=== PATIENT | female | born 1990 | race Two or more races ===

== ENCOUNTER → 2018-04-21 | Outpatient (CLI) | payer SELFPAY ==
--- NOTE | 2018-04-21 16:22 | RADIOLOGY REPORT (SQ) ---
EXAM DESCRIPTION: U/S OB 14+ TRNABD 1GES W/O DOP COMPLETED DATE/TIME: 04/21/2018 4:10 pm REASON FOR STUDY: Z34.02 ENCNTR FOR SUPRVSN OF NORMAL FIRST PREG, SECOND TRIMESTER Z34.02 ENCNTR FO R SUPRVSN OF NORMAL FIRST PREG, SECOND TRIME COMPARISON: None. TECHNIQUE: Static and Dynamic grayscale imaging performed of gravid uterus using transabdominal appr oac. Additional selected color Doppler and spectral images recorded. All stored on PACS. LIMITATIONS: None. FINDINGS: FETUSES SEEN:1 EGA: 27 week 0 day. Calculated using BPD,FL,HC,AC documented on images. No discrepancy with clinical dates. ISABELA: 07/21/2018. EFW: 1,041 grams PERCENTILE: 45%. JANES: 13.5 cm. PLACENTA: Anterior. GRADE: I PRESENTATION: Cephalic. ANATOMY: HEART RATE: 152 beats per minute. FOUR CHAMBER HEART: Visualized. THREE VESSEL CORD: Yes. CORD INSERTION: Visualized. KIDNEYS AND BLADDER: Visualized. Appear normal. STOMACH: Visualized. Appears normal. SPINE: Poorly visualized due to positioning. BRAIN AND LATERAL VENTRICLES: Visualized. Appear normal. OTHER: No other significant finding. MATERNAL ADNEXA: Maternal ovaries not visualized. CERVICAL LENGTH: 4.0 cm. Closed. OTHER: No other significant finding. IMPRESSION: LIVING INTRAUTERINE . ESTIMATED GESTATIONAL AGE 27 WEEK 0 DAY. NO VISUALIZED ANOMALIES. Trimester of : Second trimester - 13 weeks 1 day to 27 weeks 6 days. TECHNICAL DOCUMENTATION: JOB ID: [id number] [employer]- All Rights Reserved Reading location - IP/workstation name: [email or web address]
== END ==
LOC: EDSTATUS 11:12 → RAD 15:18
PROVIDERS: ATTEND Midwife
DX: Z34.02 Encounter for supervision of normal first pregnancy, second trimester (principal)
CPT/HCPCS: 76805

== ENCOUNTER 2018-07-14 01:41 | Inpatient (IN) | payer MEDICAID ==
[2018-07-14 02:16] LABS: APPEARANCE,URINE SLIGHTLY-CLOUDY; BILIRUBIN,URINE NEGATIVE (NEGATIVE); COLOR,URINE YELLOW; GLUCOSE, URINE NEGATIVE (NEGATIVE); KETONES,URINE 20 mg/dL (NEGATIVE); LEUKOCYTE ESTERASE,URINE MODERATE (NEGATIVE); NITRITE,URINE NEGATIVE (NEGATIVE); PROTEIN,URINE NEGATIVE (NEGATIVE); URINE SPECIFIC GRAVITY 1.015; UROBILINOGEN,URINE NEGATIVE mg/dL (<2.0)
[2018-07-14] MEDS ORDERED: RINGERS SOLUTION,LACTATED 1,000 ML IV ONE (02:30)
[2018-07-14 02:36] LABS: URINE AMPHETAMINES SCREEN NEGATIVE; URINE BARBITURATES SCREEN NEGATIVE; URINE BENZODIAZEPINES SCREEN NEGATIVE; URINE COCAINE SCREEN NEGATIVE; URINE MARIJUANA (THC) SCREEN NEGATIVE; URINE METHADONE SCREEN NEGATIVE; URINE PHENCYCLIDINE SCREEN NEGATIVE
[2018-07-14 02:45] LABS: ABSOLUTE EOSINOPHILS # (AUTO) 0.1 10^3/uL (0.0-0.6); ABSOLUTE LYMPHOCYTES (AUTO) 2.3 10^3/uL (0.5-4.7); ABSOLUTE MONOCYTES (AUTO) 0.8 10^3/uL (0.1-1.4); ABSOLUTE NEUT (AUTO) 8.1 10^3/uL (1.7-8.2); BASOPHILS % (AUTO) 0.3 % (0-2); EOSINOPHILS % (AUTO) 1.1 % (0-6); HEMATOCRIT 36.7 % (36.0-47.0); HEMOGLOBIN 12.5 g/dL (12.0-15.5); LYMPHOCYTES % (AUTO) 20.4 % (13-45); MEAN CORPUSCULAR HEMOGLOBIN 29.1 pg (27.0-33.4); MEAN CORPUSCULAR HGB CONC 34.1 g/dL (32.0-36.0); MEAN CORPUSCULAR VOLUME 85 fl (80-97); MONOCYTES % (AUTO) 6.7 % (3-13); PLATELET COUNT 292 10^3/uL (150-450); RED CELL DISTRIBUTION WIDTH 13.5 % (11.5-14.0); SEGMENTED NEUTROPHILS % (AUTO) 71.5 % (42-78); TOTAL CELLS COUNTED % (AUTO) 100 %; WHITE BLOOD COUNT 11.3 10^3/uL (4.0-10.5)
[2018-07-14] MEDS: RINGERS SOLUTION,LACTATED 1,000 ML IV PRN ×2 (03:43→11:06)
--- NOTE | 2018-07-14 07:18 | Admission Physical ---
Datetime Report Generated by CPN: 07/14/2018 07:17 CURRENT ADMISSION Chief Complaint: Uterine Contractions Indication for Induction: Not Applicable Admit Impression : Term, Intrauterine ; Ruptured Membranes Admit Plan: Admit to Unit; Initiate Labor Augmentation Protocol ALLERGIES Medication Allergies: No Medication Allergies: No Known Allergies (07/14/2018) Latex: No Latex Allergies OBSTETRICAL HISTORY EDC: 07/25/2018 00:00 : 1 Para: 0 Term: 0 : 0 SAB: 0 IAB: 0 Ectopic: 0 Livin Cesareans: 0 VBACs: 0 Multiple Births: 0 Gestational Diabetes: No Rh Sensitization: No Incompetent Cervix: No EUN: No Infertility: No ART Treatment: No Uterine Anomaly: No IUGR: No Hx Previous C/S: No Macrosomia: No Hx Loss/Stillborn: No PIH: No Hx : No Placenta Previa/Abruption: No Depression/PP Depression: No PTL/PROM: No Post Hemorrhage: No Current Procedures: Ultrasound Obstetrical History Comments: G1- Current SEE RECORDS Alcohol: No Marijuana : No Cocaine: No Other Illicit Drugs: No Cigarettes: Never Smoker. [id number] MEDICAL HISTORY Diabetes: No Blood Transfusion: No Pulmonary Disease (Asthma, TB): No Breast Disease: No Hypertension: No Radiology Transcriptionist Surgery: No Heart Disease: No Hosp/Surgery: No Autoimmune Disorder: No Anesthetic Complications: No Kidney Disease: No Abnormal Pap Smear: No Neuro/Epilepsy: No Psychiatric Disorders: No Other Medical Diseases: No Hepatitis/Liver Disease: No Significant Family History: No Varicosities/Phlebitis: No Trauma/Violence : No Thyroid Dysfunction: No INFECTIOUS HISTORY Gonorrhea: No Genital Herpes: No Chlamydia: No Tuberculosis: No Syphilis: No Hepatitis: No HIV/AIDS Exposure: No Rash or Viral Illness: No HPV: No PHYSICAL EXAM General: Normal HEENT: Normal Neurologic: Normal Thyroid: Normal Heart: Normal Lungs: Normal Breast: Normal Back: Normal Abdomen: Normal Genitourinary Exam: Normal Extremities: Normal DTRs: Normal Pelvic Type: Adequate Vital Signs: Reviewed; Within Normal Limits VAGINAL EXAM Dilatation: ft Effacement: 80 Station: -1 Contraction Comments: regular MEMBRANES Membranes: Ruptured FETUS A EGA: 38.3 Monitoring: External US FHR- Baseline: 120s Variability: Moderate 6-25bpm Accelerations: 15X15 Decelerations: None FHR Category: Category I Admit Comment: presents to L_D c/o leakage of fluid. GBS Neg. Language barrier. PLANS FOR LABOR AND DELIVERY Labor and Delivery: None Feeding Preference: Both Benefit of Breast Feed Discussed: Yes INFORMED CONSENT Signature: with User ID: [email or web address]
[2018-07-14] MEDS ORDERED: LIDOCAINE 1% INJ-PF (10 MG/ML) 30 ML SDV ONE (07:37)
[2018-07-14] MEDS ORDERED: OXYTOCIN 10 UNIT/ML VIAL ONE (07:37)
[2018-07-14] MEDS ORDERED: OXYTOCIN/NORMAL SALINE 20 UNIT/1,000 ML RTUINJ ONE (07:37)
[2018-07-14] MEDS ORDERED: MISOPROSTOL 0.2 MG TABLET ONE ×2 (07:37→23:27)
[2018-07-14] MEDS ORDERED: OXYTOCIN/NORMAL SALINE 20 UNIT/1,000 ML RTUINJ IV PRN (08:30)
[2018-07-14] MEDS ORDERED: NALBUPHINE HCL INJ 10 MG/1 ML AMPULE ONE (11:14)
[2018-07-14] MEDS ORDERED: PROMETHAZINE HCL INJ 25 MG/1 ML VIAL ONE (11:14)
[2018-07-14] MEDS ORDERED: PROMETHAZINE HCL INJ 25 MG/1 ML VIAL IV ONE (11:20)
[2018-07-14] MEDS ORDERED: EPHEDRINE SULFATE INJ 50 MG/1 ML AMPULE ONE (15:24)
[2018-07-14] MEDS ORDERED: FENTANYL/BUPIVACAINE/NS/PF 300 MCG/150 ML RTUINJ EPI ONE (15:25)
[2018-07-14] MEDS ORDERED: BUPIVACAINE HCL 0.25 % INJ/PF (2.5 MG/1 ML) 30 ML VIAL ONE (15:25)
[2018-07-14] MEDS ORDERED: ACETAMINOPHEN 325 MG TABLET ONE ×2 (16:36→23:56)
[2018-07-14] MEDS ORDERED: AMPICILLIN SOD INJ 2 GM VIAL ONE (17:57)
[2018-07-14] MEDS ORDERED: GENTAMICIN SULFATE INJ 80 MG/2 ML VIAL ONE ×2 (17:57→18:22)
[2018-07-14] MEDS: AMPICILLIN SODIUM 2 GM in NORMAL SALINE 100 ML IV SCH (18:03)
[2018-07-14] MEDS ORDERED: GENTAMICIN SULFATE INJ 80 MG/2 ML VIAL IV SCH (18:30)
[2018-07-15] MEDS ORDERED: DIPHENHYDRAMINE HCL 25 MG CAPSULE PO PRN (00:26)
[2018-07-15] MEDS ORDERED: PROMETHAZINE HCL INJ 25 MG/1 ML VIAL IV PRN (00:26)
[2018-07-15] MEDS ORDERED: MISOPROSTOL 0.2 MG TABLET PR PRN (00:26)
[2018-07-15] MEDS ORDERED: PROMETHAZINE HCL 25 MG SUPP.RECT PR PRN (00:26)
[2018-07-15] MEDS ORDERED: GLYCERIN/WITCH HAZEL LEAF 1 EACH MED..WIPE TP PRN (00:26)
[2018-07-15] MEDS ORDERED: ACETAMINOPHEN 325 MG TABLET PO PRN (00:26)
[2018-07-15] MEDS ORDERED: OXYTOCIN/NORMAL SALINE 20 UNIT/1,000 ML RTUINJ IV PRN (00:26)
[2018-07-15] MEDS ORDERED: ACETAMINOPHEN WITH CODEINE #3 TABLET PO PRN ×2 (00:26)
[2018-07-15] MEDS ORDERED: MEASLES,MUMPS&RUBELLA VACC/PF 0.5 ML VIAL SUBCUT PRN (00:26)
[2018-07-15] MEDS ORDERED: MAGNESIUM HYDROXIDE SUSP 30 ML UDCUP PO PRN (00:26)
[2018-07-15] MEDS ORDERED: DIBUCAINE 1% OINTMENT 56 GM TP PRN (00:26)
[2018-07-15] MEDS ORDERED: BENZOCAINE/MENTHOL AEROSOL SPRAY 56 ML TOP PRN (00:26)
[2018-07-15] MEDS ORDERED: ZOLPIDEM TARTRATE 5 MG TABLET PO PRN (00:26)
[2018-07-15] MEDS ORDERED: PROMETHAZINE HCL 25 MG TABLET PO PRN (00:26)
[2018-07-15] MEDS ORDERED: NA PHOS,M-B/NA PHOS,DI-BA (ADULT) 133 ML ENEMA PR PRN (00:26)
[2018-07-15] MEDS ORDERED: DIPH/PERTUSS(ACELL)/TETANUS VAC/PF 0.5 ML SYR (>=10YO) IM PRN (00:26)
[2018-07-15] MEDS ORDERED: PSEUDOEPHEDRINE HCL 30 MG TABLET PO PRN (00:26)
[2018-07-15] MEDS ORDERED: AMPICILLIN SOD INJ 2 GM VIAL ONE ×2 (01:03→05:44)
[2018-07-15] MEDS ORDERED: GENTAMICIN SULFATE INJ 80 MG/2 ML VIAL IV SCH (02:00)
[2018-07-15] MEDS: AMPICILLIN SODIUM 2 GM in NORMAL SALINE 100 ML IV SCH ×5 (02:10→23:36)
[2018-07-15] MEDS: IBUPROFEN 800 MG TABLET PO SCH ×3 (05:58→21:33)
[2018-07-15] MEDS: FAMOTIDINE 20 MG TABLET PO SCH ×2 (09:51→21:33)
[2018-07-15] MEDS: PRENATAL VITAMIN W DHA CAPSULE PO SCH (09:51)
[2018-07-15] MEDS: DOCUSATE SODIUM 100 MG CAPSULE PO SCH ×2 (09:51→18:28)
[2018-07-15] MEDS: SENNOSIDES/DOCUSATE 8.6-50 MG 1 EACH TABLET PO SCH (09:52)
[2018-07-15] MEDS: FERROUS SULFATE 325 MG TABLET PO SCH ×2 (09:52→18:28)
[2018-07-15] MEDS: GENTAMICIN SULFATE 150 MG in DEXTROSE 5%-WATER 100 ML IV SCH ×2 (11:48→21:30)
--- NOTE | 2018-07-15 11:49 | PDOC PROGRESS REPORT ---
Subjective-OB Progress Note for:: 07/15/18 Subjective: reports pain controlled with current meds, bleeding slowing. denies needs. Physical Exam (OB) Vital Signs: Temp Pulse Resp BP Pulse Ox 97.9 F 85 20 101/61 97 07/15/18 07:59 07/15/18 07:59 07/15/18 07:59 07/15/18 07:59 07/15/18 07:59 Intake & Output 07/14/18 07/15/18 07/16/18 06:59 06:59 06:59 Intake Total 1023 300 Balance 1023 300 Weight 98 kg - Abdomen Description: Soft Hernia Present: No Fundal Description: Firm, Midline Fundal Height: u/u - u/2 - Abdominal Distension: No distension Tenderness: Nontender - Extremities Lower extremities: Lucas's sign - neg Calf: Normal, Nontender Objective-Diagnostic Laboratory: 07/14/18 02:33 Assessment and Plan(PN) - Assessment and Plan (1) Vaginal delivery Is this a current diagnosis for this admission?: Yes - Time Spent with Patient Time with patient: Less than 15 minutes Medications reviewed and adjusted accordingly: Yes - Disposition Anticipated Discharge: Home Within: within 24 hours
[2018-07-16] MEDS: GENTAMICIN SULFATE 150 MG in DEXTROSE 5%-WATER 100 ML IV SCH ×2 (02:28→14:25)
[2018-07-16] MEDS: IBUPROFEN 800 MG TABLET PO SCH ×2 (05:29→14:29)
[2018-07-16] MEDS: AMPICILLIN SODIUM 2 GM in NORMAL SALINE 100 ML IV SCH ×2 (06:10→14:26)
[2018-07-16 06:53] LABS: HEMATOCRIT 30.7 % (36.0-47.0); HEMOGLOBIN 10.6 g/dL (12.0-15.5); MEAN CORPUSCULAR HEMOGLOBIN 29.8 pg (27.0-33.4); MEAN CORPUSCULAR HGB CONC 34.4 g/dL (32.0-36.0); MEAN CORPUSCULAR VOLUME 87 fl (80-97); PLATELET COUNT 255 10^3/uL (150-450); RED BLOOD COUNT 3.54 10^6/uL (3.72-5.28); RED CELL DISTRIBUTION WIDTH 13.7 % (11.5-14.0); WHITE BLOOD COUNT 10.9 10^3/uL (4.0-10.5)
--- NOTE | 2018-07-16 08:15 | Delivery Summary ---
Del Sum A-C Datetime Report Generated by CPN: 07/16/2018 08:14 DELIVERY PERSONNEL DELIVERY PERSONNEL: [id number] Delivery Doctor:: Jessica Welsh MD Anesthesiologist:: Petey Manuel MD Labor and Delivery Nurse:: Delmi Lopez RN Labor and Delivery Nurse:: Ana Gutierrez RN Nursery Nurse:: Cherelle Quintana RN MATERNAL INFORMATION Delivery Anesthesia: Epidural Medications After Delivery: Pitocin Drip 20 Units/1000ml NSS; Cytotec 1000mcg Per Rectum/Vagina Maternal Complications: Premature Rupture of Membranes; Maternal Fever Other Maternal Complications: prolonged rupture of membranes Provider Comments: VMI delivered in ARANZA presentation with compound right hand. Shoulders and body delivered without difficulty. Cord doubly clamped and cut and to maternal abd. Placneta delivered intact spontaneously. FF at U after cytotec for uterine atony. Perineal 2nd degree laceration repaired in usual fashion with good hemostasis. Mother and baby stable upon provider leaving the room. LABOR SUMMARY EDC: 07/25/2018 00:00 No. Babies in Womb: 1 Labor Anesthesia: Epidural LABOR INFORMATION Reason for Induction: Premature Rupture of Membranes Onset of Labor: 07/15/2018 17:43 Complete Dilatation: 07/14/2018 01:00 Oxytocin: Induction Group B Beta Strep: Negative Steroids Given: None Reason Steroids Not Administered: Not Applicable MEMBRANES Membranes Rupture Method: Spontaneous Rupture of Membranes: 07/14/2018 01:00 Length of Rupture (hr): 22.35 Amniotic Fluid Color: Clear Amniotic Fluid Amount: Moderate Amniotic Fluid Odor: Normal STAGES OF LABOR Stage 1 hr: -40 Stage 1 min: -43 Stage 2 hr: 22 Stage 2 min: 21 Stage 3 hr: 24 Stage 3 min: 32 Total Time in Labor hr: 6 Total Time in Labor min: 10 VAGINAL DELIVERY Episiotomy: None Laceration #1: Perineal Laceration Extension #1: Second Degree Laceration Repair: Yes Sponge Count Correct: Yes Sharps Count Correct: Yes CSECTION DELIVERY Primary Indication: N/A CSection Incision: N/A BABY A INFORMATION Infant Delivery Date/Time: 07/14/2018 23:21 Method of Delivery: Vaginal Born in Route : No : N/A Forceps: N/A Vacuum Extraction: N/A Shoulder Dystocia : No PRESENTATION/POSITION BABY A Presentation: Cephalic Cephalic Presentation: Vertex Vertex Position: Right Occipital Anterior Breech Presentation: N/A PLACENTA INFORMATION BABY A Placenta Delivery Time : 07/15/2018 23:53 Placenta Method of Delivery: Spontaneous Placenta Status: Delivered SCORES BABY A Heart Rate 1 min: >100 bpm Resp Effort 1 min: Good Cry Reflex Irritability 1 min: Cough or Sneeze or Pulls Away Muscle Tone 1 min: Active Motion Color 1 min: Blue/Pale SCORE 1 MIN: 8 Heart Rate 5 min: >100 bpm Resp Effort 5 min: Good Cry Reflex Irritability 5 min: Cough or Sneeze or Pulls Away Muscle Tone 5 min: Active Motion Color 5 min: Body [place], Extremities Blue SCORE 5 MIN: 9 INFORMATION BABY A Gestational Age at Delivery: 38.3 Gestational Status: Early Term- 37- 38.6 Weeks Outcome : Liveborn Condition : Stable Sex: Male Infant Sex: Male IDENTIFICATION BABY A Verification Date/Time: 07/14/2018 23:40 ID Band Number: [id number] Mother's Name Verified: Yes Infant RN Verifying : C. Mpilin,RN E. Jilek, RN WEIGHT/LENGTH BABY A Infant Birthweight (gm): 3336 Infant Weight (lb): 7 Infant Weight (oz): 6 Length (in): 19.75 Length (cm): 50.17 CORD INFORMATION BABY A No. Cord Vessels: 3 Nuchal Cord : N/A Nuchal Cord- Other: compound right hand Cord Blood Taken: Yes-For Eval (Mom's Blood Type - or O+) Suction: None ASSESSMENT BABY A Skin to Skin: Yes Skin to Skin: Yes SIGNATURES Signature: with User ID: [email or web address] : I was personally available for consultation and serving as supervising physician for the P.
[2018-07-16 08:55] VITALS: BP 101/65
[2018-07-16] MEDS: PRENATAL VITAMIN W DHA CAPSULE PO SCH (09:43)
[2018-07-16] MEDS: FERROUS SULFATE 325 MG TABLET PO SCH (09:43)
[2018-07-16] MEDS: SENNOSIDES/DOCUSATE 8.6-50 MG 1 EACH TABLET PO SCH (09:43)
[2018-07-16] MEDS: DOCUSATE SODIUM 100 MG CAPSULE PO SCH (09:43)
[2018-07-16] MEDS: FAMOTIDINE 20 MG TABLET PO SCH (09:43)
--- NOTE | 2018-07-16 11:02 | PDOC DISCHARGE SUMMARY ---
Final Diagnosis Discharge Date: 07/16/18 - Final Diagnosis (1) Acute blood loss anemia Is this a current diagnosis for this admission?: Yes (2) PROM (premature rupture of membranes) Is this a current diagnosis for this admission?: Yes (3) Perineal laceration during delivery, delivered Is this a current diagnosis for this admission?: Yes (4) Prolonged rupture of membranes Is this a current diagnosis for this admission?: Yes (5) Vaginal delivery Is this a current diagnosis for this admission?: Yes Discharge Data - Discharge Medication Prescriptions: Ibuprofen [Motrin 800 mg Tablet] 800 mg PO Q8HP PRN #20 tablet PRN Reason: Abdominal Cramping Docusate Sodium [Colace 100 mg Capsule] 100 mg PO BID #60 capsule Ferrous Sulfate [Feosol 325 mg Tablet] 325 mg PO BID #60 tablet Home Medications: Vits96/Iron Fum/Folic [ Tablet] 1 each PO DAILY 07/14/18 Docusate Sodium [Colace 100 mg Capsule] 100 mg PO BID #60 capsule 07/16/18 Ferrous Sulfate [Feosol 325 mg Tablet] 325 mg PO BID #60 tablet 07/16/18 Ibuprofen [Motrin 800 mg Tablet] 800 mg PO Q8HP PRN #20 tablet 07/16/18 Reason(s) for Admission: PROM Procedures: Ultrasound Intrapartum Procedure(s): Spontaneous Vaginal Delivery Complication(s): Laceration-Perineal Laceration-Degree: 2nd - Diagnosis Test Laboratory: Temp Pulse Resp BP Pulse Ox 97.6 F 67 14 101/65 99 07/16/18 07:50 07/16/18 07:50 07/16/18 07:50 07/16/18 07:50 07/16/18 07:50 07/14/18 07/14/18 07/16/18 01:50 02:33 06:24 RBC 4.30 3.54 L Hgb 12.5 10.6 L Hct 36.7 30.7 L Urine Opiates Screen NEGATIVE - Discharge information/Instructions Discharge Activity: Activity As Tolerated, Balance Activity w/Rest, No Lifting Over 10 Pounds, Pelvic Rest, No tub bath, Walk Frequently Discharge Diet: As Tolerated, Regular Disposition: HOME, SELF-CARE Follow up with: [facility] in: 5, Weeks
== END 2018-07-16 17:19 | disposition home or self-care (01) | DRG 806 ==
LOC: LC 01:41 → LR 02:22 → 2S 07-15 02:08
PROVIDERS: ADMIT Obstetrics & Gynecology; ATTEND Obstetrics & Gynecology
PROC: 10E0XZZ Delivery of Products of Conception, External Approach (ICD-10-PCS; principal; 2018-07-14)
PROC: 0KQM0ZZ Repair Perineum Muscle, Open Approach (ICD-10-PCS; 2018-07-14)
PROC: 3E033VJ Introduction of Other Hormone into Peripheral Vein, Percutaneous Approach (ICD-10-PCS; 2018-07-14)
PROC: 4A1HXCZ Monitoring of Products of Conception, Cardiac Rate, External Approach (ICD-10-PCS; 2018-07-14)
DX: O32.6XX0 Maternal care for compound presentation, not applicable or unspecified (principal); D62 Acute posthemorrhagic anemia; Z37.0 Single live birth; O90.81 Anemia of the puerperium; O70.1 Second degree perineal laceration during delivery; Z3A.38 38 weeks gestation of pregnancy
CPT/HCPCS: 36415; 80307; 81005; 84112; 85025; 85027; 86592; 86850; 86900; 86901; 88307; J0290; J1580; J2300; J2550; J2590; J3010; J3490; J7050; J7060

== ENCOUNTER → 2019-06-19 | Outpatient (CLI) | payer SELFPAY ==
--- NOTE | 2019-06-19 14:36 | RADIOLOGY REPORT (SQ) ---
EXAM DESCRIPTION: U/S OB 14+ TRNABD 1GES W/O DOP IMAGES COMPLETED DATE/TIME: 06/19/2019 2:17 pm REASON FOR STUDY: Z34.82 ENCOUNTER FOR SUPRVSN OF NORMAL , SECOND TRIMESTER Z34.82 ENCOUNT ER FOR SUPRVSN OF NORMAL , SECOND TRI COMPARISON: None. TECHNIQUE: Transabdominal static and realtime grayscale images acquired of the pelvis. Additional se lected spectral and color Doppler images recorded. All images stored on PACs. bHCG: Not available. CLINICAL DATES: Unknown. LIMITATIONS: None. FINDINGS: FETUS: Single Living intrauterine . ULTRASOUND EGA: 13 weeks 5 days. ULTRASOUND ISABELA: 12/20/2019 EFW: Not applicable less than 20 weeks. CRL: 7.7 cm. FHR: 157 beats per minute. SURVEY: No visualized anomalies. AMNIOTIC FLUID: Adequate amount. PLACENTA: Not yet developed due to early gestation. SUBCHORIONIC BLEED: No. SIZE OF BLEED: Not applicable. UTERUS: No masses. No anomalies. CERVICAL LENGTH: 4.0 cm. Closed. RIGHT ADNEXA: Normal ovary with normal vascular flow. No adnexal free fluid. No adnexal masses. LEFT ADNEXA: Normal ovary with normal vascular flow. No adnexal free fluid. No adnexal masses. FREE FLUID: None. OTHER: No other significant finding. IMPRESSION: LIVING INTRAUTERINE . EGA 13 WEEKS 5 DAYS. Trimester of : Second trimester - 13 weeks 1 day to 27 weeks 6 days. TECHNICAL DOCUMENTATION: JOB ID: [id number] [employer]- All Rights Reserved rev Reading location - IP/workstation name: [email or web address]
== END ==
LOC: RAD 12:13
PROVIDERS: ATTEND Midwife
DX: Z34.82 Encounter for supervision of other normal pregnancy, second trimester (principal); Z3A.13 13 weeks gestation of pregnancy
CPT/HCPCS: 76805

== ENCOUNTER 2019-11-15 16:02 | Outpatient (CLI) | payer MEDICAID ==
[2019-11-15 16:57] LABS: APPEARANCE,URINE SLIGHTLY-CLOUDY; BILIRUBIN,URINE NEGATIVE (NEGATIVE); COLOR,URINE AMBER; GLUCOSE, URINE NEGATIVE (NEGATIVE); KETONES,URINE NEGATIVE (NEGATIVE); LEUKOCYTE ESTERASE,URINE TRACE (NEGATIVE); NITRITE,URINE NEGATIVE (NEGATIVE); PROTEIN,URINE 30 mg/dL (NEGATIVE); URINE SPECIFIC GRAVITY 1.017
[2019-11-15 17:13] LABS: URINE AMPHETAMINES SCREEN NEGATIVE; URINE BARBITURATES SCREEN NEGATIVE; URINE BENZODIAZEPINES SCREEN NEGATIVE; URINE COCAINE SCREEN NEGATIVE; URINE MARIJUANA (THC) SCREEN NEGATIVE; URINE METHADONE SCREEN NEGATIVE; URINE PHENCYCLIDINE SCREEN NEGATIVE
[2019-11-15] MEDS ORDERED: RINGERS SOLUTION,LACTATED 1,000 ML IV PRN (17:14)
[2019-11-15] MEDS ORDERED: CEFTRIAXONE INJ 1000 MG VIAL ONE (17:18)
[2019-11-15] MEDS ORDERED: CEFTRIAXONE INJ 1000 MG VIAL IV ONE (18:30)
--- NOTE | 2019-11-15 19:03 | Non Stress Test Report ---
Non Stress Test Datetime Report Generated by CPN: 11/15/2019 19:03 DEMOGRAPHIC EGA NST: 35.0 INDICATION Indication for Study (NST) Other: vaginal bleeding MONITORING Monitor Explained: Monitor Explained; Test Explained; Patient Verbalized Understanding Time on Monitor: 11/15/2019 16:24 Time off Monitor: 11/15/2019 18:54 NST Duration: 150 NST INTERVENTIONS NST Interventions: None BABY A: [id number] Movement : Present Contraction Frequency : none FHR Baseline : 135 Accelerations : 15X15 Decelerations : None Variability : Moderate 6-25bpm NST Review: Meets Criteria for Reactive NST NST Review and Verified By : Olvin WORTHINGTONT Results: Reactive NST REPORT Report Trigger: Send Report
[2019-11-16] MEDS ORDERED: NITROFURANTOIN MONOHYD/M-CRYST 100 MG CAPSULE PO SCH (10:00)
== END 2019-11-15 19:12 | disposition home or self-care (01) ==
LOC: RDC 16:02 → LC 19:12
PROVIDERS: ATTEND Obstetrics & Gynecology
DX: O46.93 Antepartum hemorrhage, unspecified, third trimester (principal); Z3A.35 35 weeks gestation of pregnancy
CPT/HCPCS: 59025; 87086; 81001; 80307; J0696

== ENCOUNTER 2019-12-13 04:14 | Inpatient (IN) | payer MEDICAID ==
[2019-12-13] MEDS ORDERED: RINGERS SOLUTION,LACTATED 1,000 ML IV ONE (04:49)
[2019-12-13 04:57] LABS: APPEARANCE,URINE CLOUDY; BILIRUBIN,URINE SMALL (NEGATIVE); COLOR,URINE AMBER; GLUCOSE, URINE NEGATIVE (NEGATIVE); KETONES,URINE 80 mg/dL (NEGATIVE); LEUKOCYTE ESTERASE,URINE TRACE (NEGATIVE); NITRITE,URINE NEGATIVE (NEGATIVE); PROTEIN,URINE 100 mg/dL (NEGATIVE)
[2019-12-13 05:16] LABS: URINE AMPHETAMINES SCREEN NEGATIVE; URINE BARBITURATES SCREEN NEGATIVE; URINE BENZODIAZEPINES SCREEN NEGATIVE; URINE COCAINE SCREEN NEGATIVE; URINE MARIJUANA (THC) SCREEN NEGATIVE; URINE METHADONE SCREEN NEGATIVE; URINE PHENCYCLIDINE SCREEN NEGATIVE
[2019-12-13] MEDS ORDERED: OXYTOCIN 10 UNIT/ML VIAL ONE (05:23)
[2019-12-13] MEDS ORDERED: MISOPROSTOL 0.2 MG TABLET ONE (05:23)
[2019-12-13] MEDS ORDERED: LIDOCAINE 1% INJ-PF (10 MG/ML) 30 ML SDV ONE (05:23)
[2019-12-13] MEDS ORDERED: OXYTOCIN/0.9 % SODIUM CHLORIDE 30 UNIT/500 ML RTUINJ ONE (05:24)
--- NOTE | 2019-12-13 05:53 | Admission Physical ---
Datetime Report Generated by CPN: 12/13/2019 05:53 CURRENT ADMISSION Chief Complaint: Uterine Contractions Indication for Induction: Not Applicable Admit Impression : Term, Intrauterine Admit Plan: Admit to Unit ALLERGIES Medication Allergies: No Medication Allergies: No Known Allergies (12/13/2019) Latex: No Latex Allergies OBSTETRICAL HISTORY EDC: 12/20/2019 00:00 : 2 Para: 1 Term: 1 : 0 SAB: 0 IAB: 0 Ectopic: 0 Livin Cesareans: 0 VBACs: 0 Multiple Births: 0 Gestational Diabetes: No Rh Sensitization: No Incompetent Cervix: No EUN: No Infertility: No ART Treatment: No Uterine Anomaly: No IUGR: No Hx Previous C/S: No Macrosomia: Unknown Hx Loss/Stillborn: No PIH: No Hx : No Placenta Previa/Abruption: No Depression/PP Depression: No PTL/PROM: No Post Hemorrhage: No Current Procedures: Ultrasound Obstetrical History Comments: 2018 G2- Current late to PN SEE RECORDS Alcohol: No Marijuana : No Cocaine: No Other Illicit Drugs: No Cigarettes: Never Smoker. [id number] MEDICAL HISTORY Diabetes: No Blood Transfusion: No Pulmonary Disease (Asthma, TB): No Breast Disease: No Hypertension: No [place] Hand Surgery: No Heart Disease: No Hosp/Surgery: Yes Autoimmune Disorder: No Anesthetic Complications: No Kidney Disease: No Abnormal Pap Smear: No Neuro/Epilepsy: No Psychiatric Disorders: No Other Medical Diseases: No Hepatitis/Liver Disease: No Significant Family History: No Varicosities/Phlebitis: No Trauma/Violence : No Thyroid Dysfunction: No Medical History Comments: anemia, Childbirth INFECTIOUS HISTORY Gonorrhea: No Genital Herpes: No Chlamydia: No Tuberculosis: No Syphilis: No Hepatitis: No HIV/AIDS Exposure: No Rash or Viral Illness: No HPV: No PHYSICAL EXAM General: Normal HEENT: Normal Neurologic: Normal Thyroid: Normal Heart: Normal Lungs: Normal Breast: Deferred Back: Normal Abdomen: Normal Genitourinary Exam: Normal Extremities: Normal DTRs: Normal Pelvic Type: Adequate Vital Signs: Reviewed VAGINAL EXAM Dilatation: 6 Effacement: 80 Station: 0 MEMBRANES Pooling: Negative Membranes: Intact FETUS A EGA: 39.0 Monitoring: External US FHR- Baseline: 120 Variability: Moderate 6-25bpm Decelerations: None FHR Category: Category I Presentation: Vertex Admit Comment: Anticipate vaginal delivery PLANS FOR LABOR AND DELIVERY Labor and Delivery: None Pain Management: Epidural Feeding Preference: Both Circumcision: No INFORMED CONSENT Signature: with User ID: [email or web address]
[2019-12-13 06:02] LABS: ABSOLUTE LYMPHOCYTES (AUTO) 1.9 10^3/uL (0.5-4.7); ABSOLUTE MONOCYTES (AUTO) 0.5 10^3/uL (0.1-1.4); ABSOLUTE NEUT (AUTO) 9.3 10^3/uL (1.7-8.2); BASOPHILS % (AUTO) 0.3 % (0-2); EOSINOPHILS % (AUTO) 0.1 % (0-6); HEMATOCRIT 37.5 % (36.0-47.0); LYMPHOCYTES % (AUTO) 16.4 % (13-45); MEAN CORPUSCULAR HEMOGLOBIN 29.6 pg (27.0-33.4); MEAN CORPUSCULAR HGB CONC 34.5 g/dL (32.0-36.0); MEAN CORPUSCULAR VOLUME 86 fl (80-97); MONOCYTES % (AUTO) 4.2 % (3-13); PLATELET COUNT 235 10^3/uL (150-450); RED BLOOD COUNT 4.38 10^6/uL (3.72-5.28); RED CELL DISTRIBUTION WIDTH 13.3 % (11.5-14.0); TOTAL CELLS COUNTED % (AUTO) 100 %; WHITE BLOOD COUNT 11.8 10^3/uL (4.0-10.5)
[2019-12-13] MEDS ORDERED: EPHEDRINE SULFATE INJ 50 MG/1 ML AMPULE ONE (06:09)
[2019-12-13] MEDS ORDERED: FENTANYL/BUPIVACAINE/NS/PF 300 MCG/150 ML RTUINJ EPI ONE (06:09)
[2019-12-13] MEDS ORDERED: ROPIVACAINE HCL 0.2% INJ/PF (2 MG/ML) 20 ML SDV ONE (06:10)
[2019-12-13] MEDS: RINGERS SOLUTION,LACTATED 1,000 ML IV PRN ×2 (06:37→12:48)
[2019-12-13] MEDS ORDERED: OXYTOCIN/0.9 % SODIUM CHLORIDE 30 UNIT/500 ML RTUINJ IV PRN ×2 (08:51→10:47)
[2019-12-13] MEDS ORDERED: PROMETHAZINE HCL 25 MG TABLET PO PRN (10:47)
[2019-12-13] MEDS ORDERED: PROMETHAZINE HCL INJ 25 MG/1 ML VIAL IV PRN (10:47)
[2019-12-13] MEDS ORDERED: PSEUDOEPHEDRINE HCL 30 MG TABLET PO PRN (10:47)
[2019-12-13] MEDS ORDERED: ZOLPIDEM TARTRATE 5 MG TABLET PO PRN (10:47)
[2019-12-13] MEDS ORDERED: DIBUCAINE 1% OINTMENT 28 GM TP PRN (10:47)
[2019-12-13] MEDS ORDERED: DIPH/PERTUSS(ACELL)/TETANUS VAC/PF 0.5 ML SYR (>=10YO) IM PRN (10:47)
[2019-12-13] MEDS ORDERED: NA PHOS,M-B/NA PHOS,DI-BA (ADULT) 133 ML ENEMA PR PRN (10:47)
[2019-12-13] MEDS ORDERED: ACETAMINOPHEN 650 MG SUPP.RECT PR PRN (10:47)
[2019-12-13] MEDS ORDERED: DIPHENHYDRAMINE HCL 25 MG CAPSULE PO PRN (10:47)
[2019-12-13] MEDS ORDERED: GLYCERIN/WITCH HAZEL LEAF 1 EACH MED..WIPE TP PRN (10:47)
[2019-12-13] MEDS ORDERED: ACETAMINOPHEN WITH CODEINE #3 TABLET PO PRN ×2 (10:47)
[2019-12-13] MEDS ORDERED: MEASLES,MUMPS&RUBELLA VACC/PF 0.5 ML VIAL SUBCUT PRN (10:47)
[2019-12-13] MEDS ORDERED: BENZOCAINE/MENTHOL AEROSOL SPRAY 56 ML TOP PRN (10:47)
[2019-12-13] MEDS ORDERED: MAGNESIUM HYDROXIDE SUSP 30 ML UDCUP PO PRN (10:47)
[2019-12-13] MEDS ORDERED: PROMETHAZINE HCL 25 MG SUPP.RECT PR PRN (10:47)
[2019-12-13] MEDS ORDERED: BENZOCAINE/MENTHOL AEROSOL SPRAY 56 ML ONE (11:26)
[2019-12-13] MEDS ORDERED: ACETAMINOPHEN 325 MG TABLET ONE (11:48)
[2019-12-13] MEDS ORDERED: ACETAMINOPHEN 325 MG TABLET PO PRN (11:49)
--- NOTE | 2019-12-13 12:09 | Warning Signs in Babies ---
VOD Warning Signs Datetime Report Generated by [facility]: 12/13/2019 12:08 VOD#608 -Warning Signs in Babies: Needs to be viewed. (11/15/2019 16:15:Jacek Crain RN)
[2019-12-13] MEDS ORDERED: ONDANSETRON HCL INJ/PF 4 MG/2 ML SDV ONE (12:45)
[2019-12-13] MEDS ORDERED: ONDANSETRON HCL INJ/PF 4 MG/2 ML SDV IV ONE (12:49)
--- NOTE | 2019-12-13 14:02 | Delivery Summary ---
Del Sum A-C Datetime Report Generated by CPN: 12/13/2019 14:01 DELIVERY PERSONNEL DELIVERY PERSONNEL: [id number] Delivery Doctor:: Jcarlos Cheek MD (Annotations: Data stored by CPN on behalf of user) Labor and Delivery Nurse:: Jacek Crain RN (Annotations: Data stored by CPN on behalf of user) Labor and Delivery Nurse:: Latrice Delacruz RN (Annotations: Data stored by CPN on behalf of user) [employer] Travel Counselor/BARK TANNER: Carley Blackburn, BAND RIPSAW OPERATOR MATERNAL INFORMATION Delivery Anesthesia: Epidural Medications After Delivery: Pitocin 30 Units in 500ml NS/D5W Estimated Blood Loss (ml): 300 Delivery QBL: 200 Maternal Complications: None LABOR SUMMARY EDC: 12/20/2019 00:00 No. Babies in Womb: 1 Attempted: No Labor Anesthesia: Epidural LABOR INFORMATION Reason for Induction: Not Applicable Onset of Labor: 12/13/2019 04:30 Complete Dilatation: 12/13/2019 08:08 Oxytocin: N/A Group B Beta Strep: negative Antibiotics # of Doses: 0 Name of Antibiotic Given: N/A Steroids Given: None Reason Steroids Not Administered: Not Applicable MEMBRANES Membranes Rupture Method: Artificial Rupture of Membranes: 12/13/2019 08:08 Length of Rupture (hr): 2.35 Amniotic Fluid Color: Clear Amniotic Fluid Amount: Small Amniotic Fluid Odor: None STAGES OF LABOR Stage 1 hr: 3 Stage 1 min: 38 Stage 2 hr: 2 Stage 2 min: 21 Stage 3 hr: 0 Stage 3 min: 3 Total Time in Labor hr: 6 Total Time in Labor min: 2 VAGINAL DELIVERY Episiotomy: None (Annotations: Data stored by [facility] on behalf of user) Laceration #1: Perineal Laceration Extension #1: First Degree Laceration #2: None Laceration Extension #2: N/A Laceration Repair: Yes Laceration Repair Note: repair with one 3-0 chromic suture Sponge Count Correct: N/A Sharps Count Correct: N/A CSECTION DELIVERY Primary Indication: N/A Secondary Indication: N/A CSection Incidence: N/A Labor: N/A Elective: N/A CSection Incision: N/A BABY A INFORMATION Infant Delivery Date/Time: 12/13/2019 10:29 Method of Delivery: Vaginal Nurse Controlled Delivery: No Born in Route : No : N/A Forceps: N/A Vacuum Extraction: N/A Shoulder Dystocia : No ASSISTED DELIVERY BABY A Station Vacuum/Forcep Apply: handlebars PRESENTATION/POSITION BABY A Presentation: Cephalic Cephalic Presentation: Vertex Vertex Position: Left Occipital Anterior Breech Presentation: N/A PLACENTA INFORMATION BABY A Placenta Delivery Time : 12/13/2019 10:32 Placenta Method of Delivery: Spontaneous Placenta Status: Delivered SCORES BABY A Heart Rate 1 min: >100 bpm Resp Effort 1 min: Good Cry Reflex Irritability 1 min: Cough or Sneeze or Pulls Away Muscle Tone 1 min: Active Motion Color 1 min: Blue/Pale Resuscitation Effort 1 min: Tactile Stimulation SCORE 1 MIN: 8 Heart Rate 5 min: >100 bpm Resp Effort 5 min: Good Cry Reflex Irritability 5 min: Cough or Sneeze or Pulls Away Muscle Tone 5 min: Active Motion Color 5 min: Body [place], Extremities Blue Resuscitation Effort 5 min: N/A SCORE 5 MIN: 9 INFORMATION BABY A Gestational Age at Delivery: 39.0 Gestational Status: Full Term- 39- 40.6 Weeks Infant Outcome : Liveborn Infant Condition : Stable Sex: Female IDENTIFICATION BABY A Verification Date/Time: 12/13/2019 10:41 ID Band Number: [id number] Mother's Name Verified: Yes Infant RN Verifying Infant: CMaksim Srivastava RN ; Jacoby Delacruz RN WEIGHT/LENGTH BABY A Infant Birthweight (gm): 3349 Infant Weight (lb): 7 Weight (oz): 6 Length (in): 20.00 Length (cm): 50.80 CORD INFORMATION BABY A No. Cord Vessels: 3 Nuchal Cord : N/A Cord Blood Taken: Yes-For Storage (Mom's Blood type +) Suction: None ASSESSMENT BABY A Complications: None Physical Findings at Delivery: Within Normal Limits Skin to Skin: Yes Transferred To: Remains with Mother BABY B INFORMATION : N/A SIGNATURES Signature: with User ID: [email or web address]
--- NOTE | 2019-12-13 14:02 | Birth Certificate Data ---
Cert Data Datetime Report Generated by Kiya: 12/13/2019 14:01 CERTIFICATE DATA Delivery Provider: Jcarlos Cheek MD (Annotations: Data stored by Kiya on behalf of user) (11/15/2019 16:15:Latrice Delacruz RN) 47a. Care: Yes (11/15/2019 16:15:Patricia Loya RN) 47b. Date of First Visit: 05/26/2019 00:00 (11/15/2019 16:15:Medina Srivastava RN) 47c. Date of Last Visit: 12/11/2019 00:00 (11/15/2019 16:15:Latrice Delacruz RN) 47d. Number of Visits: 10 (11/15/2019 16:15:Latrice Delacruz RN) 48a. Number of Prev Live Births: 1 (11/15/2019 16:15:Medina Srivastava RN) 48b. Now Livin (11/15/2019 16:15:Medina Srivastava RN) 48c. Live Births Now : 0 (11/15/2019 16:15:QS system process) 48e. Losses: 0 (11/15/2019 16:15:Medina Srivastava RN) RISK FACTORS IN THIS 49a. Diabetes: No (11/15/2019 16:15:Jacek Crain RN) 49b. Hypertension: No (11/15/2019 16:15:Jacek Crain RN) 49c. Previous Births: 0 (11/15/2019 16:15:Medina Srivastava RN) 49d. Stillborns: No (11/15/2019 16:15:Jacek Crain RN) 49d. IUGR: No (11/15/2019 16:15:Jacek Crain RN) 49e. Infertility Treatment: No (11/15/2019 16:15:Jacek Crain RN) 49f. Previous Cesareans: 0 (11/15/2019 16:15:Medina Srivastava RN) Mother's Height 50b. Height Inches: 65 (12/13/2019 05:35:QS system process) Mother's Weight 51a. Pre- Weight (lbs): 160 (11/15/2019 16:15:Jacek Crain RN) 51b. Weight at Delivery (lbs): 169 (12/13/2019 13:59:QS system process) 52. Dt Last Normal Menses Began: 02/22/2019 00:00 (11/15/2019 16:15:Medina Srivastava RN) Infections Present/Treated 53a. Gonorrhea: No (11/15/2019 16:15:Jacek Crain RN) Results this Hospital Visit : Negative (11/15/2019 16:15:Patricia Loya RN) 53b. Syphilis: No (11/15/2019 16:15:Jacek Crain RN) 53c. Chlamydia: No (11/15/2019 16:15:Jacek Crain RN) Results this Hospital Visit: Negative (11/15/2019 16:15:Patricia Loya RN) 53d. Hepatitis B: No (11/15/2019 16:15:Jacek Crain RN) Results this Hospital Visit: Negative (11/15/2019 16:15:Medina Srivastava RN) 53e. Hepatitis C: Negative (11/15/2019 16:15:Medina Srivastava RN) 53h. Mother Tested for HBsAG: Yes (11/15/2019 16:15:Medina Srivastava RN) 53i. Date Tested: 06/25/2019 00:00 (11/15/2019 16:15:Medina Srivastava RN) 53j. Test Result: Negative (11/15/2019 16:15:Medina Srivastava RN) Obstetric Procedures 54a, b, c. Obstetric Procedures: Ultrasound (11/15/2019 16:15:Jacek Crain RN) Cigarette Smoking Cigarette Smoking: Never Smoker. [id number] (11/15/2019 16:15:Patricia Loya RN) 55a. 3 Months Before Preg - Ci (11/15/2019 16:15:Patricia Loya RN) 55b. 1st Trimester of Preg- Ci (11/15/2019 16:15:Patricia Loya RN) 55c. 2nd Trimester of Preg- Ci (11/15/2019 16:15:Patricia Loya RN) 55d. 3rd Trimester of Preg- Ci (11/15/2019 16:15:Patricia Loya RN) Onset of Labor 56a. PROM >12 Hrs: 2.35 (11/15/2019 16:15:QS system process) 56b. Precipitous Labor <3 Hrs: 6 (11/15/2019 16:15:QS system process) 56c. Prolonged Labor > 20 Hrs: 6 (11/15/2019 16:15:QS system process) 57a. Induction of Labor: N/A (11/15/2019 16:15:Latrice Delacruz RN) 57c. Non-Vertex Presentation A: Vertex (11/15/2019 16:15:Latrice Delacruz RN) 57d. Steroids - Lung Mat: None (11/15/2019 16:15:Jacek Crain RN) 57d. Steroids - Lung Mat: Not Applicable (11/15/2019 16:15:Jacek Crain RN) 57g. Moderate/Heavy Meconium: Clear (12/13/2019 08:08:Jacek Crain RN) 57h. Intolerance of Labor: N/A (11/15/2019 16:15:Medina Srivastava RN) : N/A (11/15/2019 16:15:Medina Srivastava RN) 57i. Epidural/Spinal Anesthesia: Epidural (11/15/2019 16:15:Jacek Crain RN) Method of Delivery 58a. Forceps - Unsuccessful A: N/A (11/15/2019 16:15:Medina Srivastava RN) 58b. Vacuum - Unsuccessful A: N/A (11/15/2019 16:15:Latrice Delacruz RN) 58c. Presentation at 58c. Presentation at - A : Vertex (11/15/2019 16:15:Latrice Delacruz RN) 58c. Presentation at - A : N/A (11/15/2019 16:15:Latrice Delacruz RN) 58c. Presentation at - A : Cephalic (12/13/2019 07:23:Jacek Crain RN) Final Route and Method of Del 58d. Baby A Route/Delivery: Vaginal (12/13/2019 10:29:Latrice Delacruz RN) 58e. Trial of Labor Attempted: No (11/15/2019 16:15:Jacek Crain RN) 58e. Trial of Labor Attempted A: N/A (11/15/2019 16:15:Jacek Crain RN) 58e. Trial of Labor Attempted B: N/A (11/15/2019 16:15:Jacek Crain RN) Maternal Morbidity 59b. 3rd or 4th Degree Lacs: Perineal (11/15/2019 16:15:Medina Srivastava RN) Birthweight Baby A: 3349 (11/15/2019 16:15:Jacek Crain RN) 60a. Pounds : 7 (11/15/2019 16:15:QS system process) 60b. Ounces: 6 (11/15/2019 16:15:QS system process) 61. GA at Delivery Baby A: 39.0 (11/15/2019 16:15:Latrice Delacruz RN) : Full Term- 39- 40.6 Weeks (11/15/2019 16:15:QS system process) 62a. 5 Minute Baby A: 9 (11/15/2019 16:15:QS system process)
[2019-12-13] MEDS: IBUPROFEN 800 MG TABLET PO SCH ×2 (15:47→21:44)
[2019-12-13] MEDS: DOCUSATE SODIUM 100 MG CAPSULE PO SCH (18:20)
[2019-12-13] MEDS: FERROUS SULFATE 325 MG TABLET PO SCH (18:20)
[2019-12-13] MEDS: FAMOTIDINE 20 MG TABLET PO SCH (21:45)
[2019-12-14] MEDS: IBUPROFEN 800 MG TABLET PO SCH ×3 (05:14→21:26)
[2019-12-14 06:30] LABS: HEMATOCRIT 34.1 % (36.0-47.0); HEMOGLOBIN 11.8 g/dL (12.0-15.5); MEAN CORPUSCULAR HEMOGLOBIN 29.8 pg (27.0-33.4); MEAN CORPUSCULAR HGB CONC 34.5 g/dL (32.0-36.0); MEAN CORPUSCULAR VOLUME 86 fl (80-97); PLATELET COUNT 215 10^3/uL (150-450); RED BLOOD COUNT 3.95 10^6/uL (3.72-5.28); RED CELL DISTRIBUTION WIDTH 13.6 % (11.5-14.0); WHITE BLOOD COUNT 11.3 10^3/uL (4.0-10.5)
[2019-12-14] MEDS: DOCUSATE SODIUM 100 MG CAPSULE PO SCH ×2 (09:12→17:49)
[2019-12-14] MEDS: FAMOTIDINE 20 MG TABLET PO SCH ×2 (09:12→21:28)
[2019-12-14] MEDS: SENNOSIDES/DOCUSATE 8.6-50 MG 1 EACH TABLET PO SCH (09:12)
[2019-12-14] MEDS: PRENATAL VITAMIN W DHA CAPSULE PO SCH (09:12)
[2019-12-14] MEDS: FERROUS SULFATE 325 MG TABLET PO SCH ×2 (09:12→17:49)
--- NOTE | 2019-12-14 11:25 | PDOC PROGRESS REPORT ---
Subjective-OB Progress Note for:: 12/14/19 Subjective: reports bleeding slowing, pain controlled with current meds. denies needs Physical Exam (OB) Vital Signs: Temp Pulse Resp BP Pulse Ox 97.9 F 71 17 115/64 99 12/14/19 07:59 12/14/19 07:59 12/14/19 07:59 12/14/19 07:59 12/14/19 07:59 Intake & Output 12/13/19 12/14/19 12/15/19 06:59 06:59 06:59 Intake Total 2173 300 Balance 2173 300 Weight - Maternal Morbidity 59. Maternal Morbidity (serious complications experinced by the mother associated with labor and delivery: None of the above - Abdomen Description: Soft, Flat Hernia Present: No Fundal Description: Firm, Midline Fundal Height: u/u - u/2 - Abdominal Distension: No distension Tenderness: Nontender Objective-Diagnostic Laboratory: 12/14/19 05:48 12/14/19 05:48 WBC 11.3 H RBC 3.95 Hgb 11.8 L Hct 34.1 L MCV 86 MCH 29.8 MCHC 34.5 RDW 13.6 Plt Count 215 Assessment and Plan(PN) - Time Spent with Patient Time with patient: Less than 15 minutes Medications reviewed and adjusted accordingly: Yes - Disposition Anticipated Discharge Disposition: Home, Self Care Anticipated Discharge Timeframe: within 24 hours
[2019-12-15] MEDS: IBUPROFEN 800 MG TABLET PO SCH ×2 (06:20→14:09)
--- NOTE | 2019-12-15 09:04 | PDOC DISCHARGE SUMMARY ---
Impression - Admit/DC Date/PCP Admission Date/Primary Care Provider: 12/13/19 05:56 LENNOX CHAU MD Discharge Date: 12/15/19 - Discharge Diagnosis (1) Perineal laceration during delivery, delivered Is this a current diagnosis for this admission?: Yes (2) Vaginal delivery Is this a current diagnosis for this admission?: Yes - Additional Information Resuscitation Status: Full Code Discharge Diet: Regular Discharge Activity: Balance Activity w/Rest, Pelvic Rest Referrals: LENNOX CHAU MD [Primary Care Provider] - Prescriptions: Ibuprofen [Motrin 800 mg Tablet] 800 mg PO Q8HP PRN #60 tablet PRN Reason: Home Medications: Vit,Calc76/Iron/Folic [Pnv 29-1 Tablet] 1 each PO DAILY 12/13/19 Ibuprofen [Motrin 800 mg Tablet] 800 mg PO Q8HP PRN #60 tablet 12/15/19 HPI Gestational Age: 39.0 Reason(s) for Admission: Onset of Labor Procedures: NST Intrapartum Procedure(s): Spontaneous Vaginal Delivery Complication(s): Laceration-Perineal Laceration-Degree: 1st Hospital Course 59. Maternal Morbidity (serious complications experinced by the mother associated with labor and delivery: None of the above Results Laboratory Results: WBC 11.3 10^3/uL (4.0-10.5) H 12/14/19 05:48 RBC 3.95 10^6/uL (3.72-5.28) 12/14/19 05:48 Hgb 11.8 g/dL (12.0-15.5) L 12/14/19 05:48 Hct 34.1 % (36.0-47.0) L 12/14/19 05:48 MCV 86 fl (80-97) 12/14/19 05:48 MCH 29.8 pg (27.0-33.4) 12/14/19 05:48 MCHC 34.5 g/dL (32.0-36.0) 12/14/19 05:48 RDW 13.6 % (11.5-14.0) 12/14/19 05:48 Plt Count 215 10^3/uL (150-450) 12/14/19 05:48 Lymph % (Auto) 16.4 % (13-45) 12/13/19 05:51 Granite % (Auto) 4.2 % (3-13) 12/13/19 05:51 Eos % (Auto) 0.1 % (0-6) 12/13/19 05:51 Baso % (Auto) 0.3 % (0-2) 12/13/19 05:51 Absolute Neuts (auto) 9.3 10^3/uL (1.7-8.2) H 12/13/19 05:51 Absolute Lymphs (auto) 1.9 10^3/uL (0.5-4.7) 12/13/19 05:51 Absolute Monos (auto) 0.5 10^3/uL (0.1-1.4) 12/13/19 05:51 Absolute Eos (auto) 0.0 10^3/uL (0.0-0.6) 12/13/19 05:51 Absolute Basos (auto) 0.0 10^3/uL (0.0-0.2) 12/13/19 05:51 Seg Neutrophils % 79.0 % (42-78) H 12/13/19 05:51 Urine Color HERNANDEZ 12/13/19 04:35 Urine Appearance CLOUDY 12/13/19 04:35 Urine pH 5.0 (5.0-9.0) 12/13/19 04:35 Ur Specific [place] 1.030 12/13/19 04:35 Urine Protein 100 mg/dL (NEGATIVE) H 12/13/19 04:35 Urine Glucose (UA) NEGATIVE mg/dL (NEGATIVE) 12/13/19 04:35 Urine Ketones 80 mg/dL (NEGATIVE) H 12/13/19 04:35 Urine Blood NEGATIVE (NEGATIVE) 12/13/19 04:35 Urine Nitrite NEGATIVE (NEGATIVE) 12/13/19 04:35 Urine Bilirubin SMALL (NEGATIVE) H 12/13/19 04:35 Urine Urobilinogen 4.0 mg/dL (<2.0) H 12/13/19 04:35 Ur Leukocyte Esterase TRACE (NEGATIVE) H 12/13/19 04:35 Urine Ascorbic Acid 20 (NEGATIVE) H 12/13/19 04:35 Urine Opiates Screen NEGATIVE 12/13/19 04:35 Urine Methadone Screen NEGATIVE 12/13/19 04:35 Ur Barbiturates Screen NEGATIVE 12/13/19 04:35 Ur Phencyclidine Scrn NEGATIVE 12/13/19 04:35 Ur Amphetamines Screen NEGATIVE 12/13/19 04:35 U Benzodiazepines Scrn NEGATIVE 12/13/19 04:35 Urine Cocaine Screen NEGATIVE 12/13/19 04:35 U Marijuana (THC) Screen NEGATIVE 12/13/19 04:35 RPR NONREACTIVE (NONREACTIVE) 12/13/19 05:51 Blood Type O POSITIVE 12/13/19 05:51 Antibody Screen NEGATIVE 12/13/19 05:51 Plan Plan of Treatment: f/u at [facility] 4 wks for PPCK Time Spent: Less than 30 Minutes
[2019-12-15] MEDS ORDERED: INFLUENZA QUAD (6MOS+) 2020-21 VAC 0.5 ML SYR IM ONE (09:05)
[2019-12-15] MEDS: SENNOSIDES/DOCUSATE 8.6-50 MG 1 EACH TABLET PO SCH (09:40)
[2019-12-15] MEDS: DOCUSATE SODIUM 100 MG CAPSULE PO SCH (09:40)
[2019-12-15] MEDS: FERROUS SULFATE 325 MG TABLET PO SCH (09:40)
[2019-12-15] MEDS: PRENATAL VITAMIN W DHA CAPSULE PO SCH (09:40)
[2019-12-15] MEDS: FAMOTIDINE 20 MG TABLET PO SCH (09:40)
[2019-12-15 10:36] VITALS: BP 127/76
[2019-12-16] MEDS ORDERED: INFLUENZA QUAD (6MOS+) 2020-21 VAC 0.5 ML SYR IM ONE (08:00)
== END 2019-12-15 14:38 | disposition home or self-care (01) | DRG 807 ==
LOC: LC 04:14 → LR 04:53 → UNDOADMIN 04:53 → LR 05:56 → 2S 12:15
PROVIDERS: ADMIT Obstetrics & Gynecology; ATTEND Obstetrics & Gynecology
PROC: 10E0XZZ Delivery of Products of Conception, External Approach (ICD-10-PCS; principal; 2019-12-13)
PROC: 0HQ9XZZ Repair Perineum Skin, External Approach (ICD-10-PCS; 2019-12-13)
DX: O70.0 First degree perineal laceration during delivery (principal); Z37.0 Single live birth; Z3A.39 39 weeks gestation of pregnancy
CPT/HCPCS: 1961; 36415; 80307; 81005; 85025; 85027; 86592; 86850; 86900; 86901; 90471; 90686; 94760; G0008; J2405; J2590; J2795; J3010; J3490